=== PATIENT | male | born 1980 | race Hispanic/Latino ===

== ENCOUNTER 2021-02-25 13:53 | Emergency (ER) | payer BC ==
[~2021-02-25] VITALS: Ht 175.3 cm; Wt 94.9 kg
[2021-02-25] MEDS ORDERED: THERAFLU FLU &1 EAC1 PO (15:13)
[2021-02-25] MEDS ORDERED: IBUPROFEN IB200 MG PO (15:13)
[2021-02-25] MEDS ORDERED: CEFDINIR300 MG PO (15:13)
== END 2021-02-25 15:25 | disposition home or self-care (01) ==
LOC: FSED 14:00
DX: U07.1 COVID-19 (principal); J06.9 Acute upper respiratory infection, unspecified; R05.9 Cough, unspecified; R51.9 Headache, unspecified
CPT/HCPCS: 99282